=== PATIENT | male | born 1995 | race African-American/Black ===

== ENCOUNTER 2018-12-17 21:05 | Emergency (ER) | payer SELFPAY ==
[2018-12-17 21:57] LABS: Bilirubin Negative (Negative); Blood, Urine Negative (Negative); Clarity CLEAR (Clear); Glucose, Urine (Dipstick) Negative (Negative); Leukocyte Negative (Negative); Nitrite Negative (Negative); Protein, Urine (Dipstick) 30 mg/dL (Neg-Trace); Specific Gravity, Urine 1.027 (1.002-1.036); Urobilinogen 0.2 mg/dL (0.2-1.0); pH, Urine 6.5 (5.0-9.0)
[2018-12-17 21:59] LABS: Bacteria/HPF None Seen HPF (None Seen); Hyaline Casts/LPF 7-10 HYALINE CAST LPF (0-3 Hyaline)
[2018-12-17] MEDS ORDERED: Ondansetron ODT 4 MG TAB ONE (22:10)
[2018-12-17 22:25] LABS: ALT (SGPT) 14 U/L (8-55); AST (SGOT) 23 U/L (5-34); Albumin 3.8 g/dL (3.5-5.0); Alkaline Phosphatase 51 U/L (40-150); Anion Gap 13 mmol/L (10-20); BUN (Urea Nitrogen) 8 mg/dL (8.9-20.6); Bilirubin, Total 0.8 mg/dL (0.2-1.2); Calc. Creatinine Clearance 0 mL/min (70-130); Calcium 8.7 mg/dL (7.8-10.44); Carbon Dioxide 23 mmol/L (22-29); Chloride 102 mmol/L (98-107); Estimated GFR-MDRD Greater than 90; Globulin 3.2 g/dL (2.4-3.5); Glucose 95 mg/dL (70-105); Lipase 34 U/L (8-78); Potassium 3.3 mmol/L (3.5-5.1); Sodium 135 mmol/L (136-145)
[2018-12-17 22:26] LABS: Band 15 % (5-11); Hemoglobin 17.8 g/dL (14.0-18.0); Lymphocytes 16 % (21-51); MDiff Complete? YES; Mean Corpuscular HGB CONC 33.8 g/dL (32.0-36.0); Mean Corpuscular Hemoglobin 31.2 pg (27.0-31.0); Mean Corpuscular Volume 92.3 fL (78.0-98.0); Mean Platelet Volume 7.6 fL (7.4-10.4); Monocytes 18 % (0-10); Neutrophil 51 % (42-75); Platelet Count 228 thou/uL (130-400); RBC Distribution Width 11.7 % (11.5-14.5); Red Blood Cell (RBC) Count 5.69 mill/uL (4.70-6.10); White Blood Cell (WBC) Count 4.9 thou/uL (4.8-10.8)
[2018-12-17] MEDS ORDERED: Potassium Chloride 20 MEQ TAB ONE (23:16)
== END 2018-12-17 23:25 | disposition home or self-care (01) ==
LOC: ERS 21:05
DX: E86.0 Dehydration (principal); E87.6 Hypokalemia; R11.2 Nausea with vomiting, unspecified; R19.7 Diarrhea, unspecified; J45.909 Unspecified asthma, uncomplicated; Z79.51 Long term (current) use of inhaled steroids
CPT/HCPCS: 36415; 80053; 81003; 81015; 83690; 85025; 87804; 99284; Q0162

== ENCOUNTER 2025-01-03 17:42 | Inpatient (IN) | payer BC, SELFPAY ==
[2025-01-03 17:51] LABS: Actual Bicarbonate (HCO3a) 22.3 mEq/L (22-28); Analyzer IN Cardio ER; Base Excess (BEa) -2.4 mEq/L (-2.0 to +3.0); CO2 Tension 38.5 mmHg (35.0-45.0); Calcium, Ionized (arterial) 1.12 mmol/L (1.12-1.30); Carboxyhemoglobin (COHb) 0.3 gm% (0.0-3.0); Hematocrit-ABG 50 % (42.0-52.0); Potassium - ABG Lab 3.41 mmol/L (3.70-5.30)
[2025-01-03 17:53] LABS: ALV-art Gradient 300.875 mmHg (0-20); Puncture Site Right Radial artery
[2025-01-03] MEDS ORDERED: Fentanyl CADD 100 ML IV SCH ×2 (18:00→20:45)
[2025-01-03] MEDS ORDERED: fentaNYL 50 mcg/mL 1 mL Vial ONE (18:02)
[2025-01-03] MEDS ORDERED: Propofol 1,000 MG/100 ML VIAL IV ONE (18:21)
[2025-01-03 18:35] LABS: Amphetamine Not Detected (NotDetected); Barbiturates Screen Not Detected (NotDetected); Benzodiazepine Screen Not Detected (NotDetected); Cocaine Metabolite Screen Not Detected (NotDetected); Methadone Not Detected (NotDetected); Methamphetamine Not Detected (NotDetected); Opiate Screen Not Detected (NotDetected); Oxycodone Screen Not Detected (NotDetected); Phencyclidine (PCP) Not Detected (NotDetected); THC/Cannabinoid Screen Not Detected (NotDetected); Tricyclic Screen Not Detected (NotDetected)
[2025-01-03 18:43] LABS: Bacteria/HPF None Seen HPF (None Seen); Bilirubin Negative (Negative); Blood, Urine Negative (Negative); CAUTI Indications for Culture Alt mental st,lethar; Clarity Clear (Clear); Glucose, Urine (Dipstick) Normal (Negative); Ketone, Urine Negative (Negative); Leukocyte Negative Leu/uL (Negative); Nitrite Negative (Negative); Protein, Urine (Dipstick) Negative (Neg-Trace); RBC/HPF 0-3 HPF (0-3); Specific Gravity, Urine 1.009 (1.002-1.036); Squamous Epithelial None Seen HPF (0-3); Urobilinogen Normal mg/dL (Less than 2); WBC/HPF 0-3 HPF (0-3); pH, Urine 6.5 (5.0-9.0)
[2025-01-03 18:56] LABS: Sperm/HPF Rare HPF (None Seen); Urine Culture Reflex No No
[2025-01-03 19:01] LABS: #Basophils Less than 0.03 10x3/uL (0.0-0.2); %Basophils 0.2 % (0.0-1.0); %Eosinophils 0.7 % (0.0-10.0); %Monocytes 8.8 % (0.0-10.0); %Neutrophils 74.1 % (42.0-75.0); Hematocrit 47.1 % (42.0-52.0); Hemoglobin 16.3 g/dL (14.0-18.0); Mean Corpuscular HGB CONC 34.6 g/dL (32.0-36.0); Mean Corpuscular Hemoglobin 30.6 pg (27.0-31.0); Mean Corpuscular Volume 88.5 fL (78.0-98.0); Mean Platelet Volume 10.6 fL (7.4-10.4); Platelet Count 229 10x3/uL (130-400); RBC Distribution Width 11.9 % (11.5-14.5); Red Blood Cell (RBC) Count 5.32 mill/uL (4.70-6.10)
[2025-01-03 19:19] LABS: Magnesium 1.7 mg/dL (1.6-2.6)
[2025-01-03 19:20] LABS: Acetaminophen Less than 10 mcg/mL (Less than 10); Alcohol Less than 10.0 mg/dL (Less than 10); Salicylate Less than 8.0 mg/dL (Less than 8.0)
[2025-01-03 19:22] LABS: ALT (SGPT) 21 U/L (Less than 45); AST (SGOT) 40 U/L (11-34); Albumin 3.7 g/dL (3.1-4.5); Alkaline Phosphatase 47 U/L (40-110); Anion Gap 12 mmol/L (10-20); BUN (Urea Nitrogen) 6 mg/dL (8.9-20.6); Bilirubin, Total 0.5 mg/dL (0.3-1.2); Calc. Creatinine Clearance 0 mL/min (70-130); Carbon Dioxide 20 mmol/L (22-29); Chloride 109 mmol/L (98-107); Estimated GFR 124; Globulin 3.1 g/dL (2.4-3.5); Glucose 104 mg/dL (70-105); Potassium 3.7 mmol/L (3.5-5.1); Protein, Total 6.8 g/dL (6.0-8.3); Sodium 137 mmol/L (136-145)
[2025-01-03] MEDS ORDERED: Acetaminophen 325 MG (10.15 ML) UDCUP PO PRN (20:28)
[2025-01-03] MEDS ORDERED: Acetaminophen 650 MG Suppository PR PRN (20:28)
[2025-01-03] MEDS ORDERED: Electrolyte Replacement Protocol 1 EACH IVPB PRN (20:28)
[2025-01-03] MEDS ORDERED: Lorazepam 2 MG/ML VIAL SLOW IVP PRN ×2 (20:29→20:45)
[2025-01-03] MEDS ORDERED: Ventilator Sedation Protocol 1 EACH FS SCH (20:30)
[2025-01-03] MEDS ORDERED: Ondansetron ODT 4 MG TAB PO PRN (20:32)
[2025-01-03] MEDS ORDERED: Ondansetron PF 4 MG/2 ML Vial IVP PRN (20:32)
[2025-01-03] MEDS ORDERED: Propofol BOLUS 1,000 MG/100 ML VIAL IV PRN (20:45)
[2025-01-03] MEDS ORDERED: Fentanyl BOLUS 250 ML IVPB PRN (20:45)
[2025-01-03] MEDS ORDERED: Morphine 2 MG/ML VIAL SLOW IVP PRN (20:45)
[2025-01-03] MEDS ORDERED: DISCONTINUE PREVIOUS NARCOTIC PAIN MEDICATIONS AND BENZODIAZEPINES FS SCH (20:45)
[2025-01-03] MEDS: Lactated Ringer's 1,000 ML IV SCH (22:31)
[2025-01-03 22:46] VITALS: BMI 25.0
[2025-01-03] MEDS: Magnesium 2 GM/50 ML(in water) 2 GM in Premix 1 BAG IVPB SCH (23:10)
[2025-01-03] MEDS: Famotidine/PF 20 mg/2ml Vial SLOW IVP SCH (23:13)
[2025-01-04] MEDS: Dexamethasone 10 MG/ML VIAL SLOW IVP SCH (00:41)
[2025-01-04] MEDS: Ipratropium/Albuterol 3 ML NEB NEB PRN (03:04)
[2025-01-04 04:13] LABS: #Basophils Less than 0.03 10x3/uL (0.0-0.2); #Eosinophils Less than 0.03 10x3/uL (0.0-0.7); %Basophils 0.2 % (0.0-1.0); %Lymphocytes 15.8 % (21.0-51.0); %Monocytes 6.8 % (0.0-10.0); Hematocrit 48.2 % (42.0-52.0); Hemoglobin 16.8 g/dL (14.0-18.0); Mean Corpuscular HGB CONC 34.9 g/dL (32.0-36.0); Mean Corpuscular Hemoglobin 30.7 pg (27.0-31.0); Mean Platelet Volume 10.5 fL (7.4-10.4); Platelet Count 249 10x3/uL (130-400); RBC Distribution Width 12.2 % (11.5-14.5); Red Blood Cell (RBC) Count 5.48 mill/uL (4.70-6.10)
[2025-01-04] MEDS: Propofol 1,000 MG/100 ML VIAL IV PRN (06:18)
[2025-01-04 06:33] LABS: ALT (SGPT) 20 U/L (Less than 45); AST (SGOT) 42 U/L (11-34); Albumin 3.6 g/dL (3.1-4.5); Alkaline Phosphatase 49 U/L (40-110); Anion Gap 12 mmol/L (10-20); BUN (Urea Nitrogen) 9 mg/dL (8.9-20.6); Bilirubin, Total 1.1 mg/dL (0.3-1.2); Calc. Creatinine Clearance 117 mL/min (70-130); Calcium 8.5 mg/dL (7.8-10.44); Carbon Dioxide 22 mmol/L (22-29); Chloride 108 mmol/L (98-107); Estimated GFR 89; Globulin 3.1 g/dL (2.4-3.5); Glucose 97 mg/dL (70-105); Protein, Total 6.7 g/dL (6.0-8.3); Sodium 138 mmol/L (136-145)
[2025-01-04] MEDS: Enoxaparin 40 MG (0.4 mL) SYRINGE SC SCH (08:22)
[2025-01-04] MEDS: Lorazepam 2 MG/ML VIAL SLOW IVP PRN (09:39)
[2025-01-04] MEDS ORDERED: Magnevist 469MG/ML 20 ML VIAL ONE (10:41)
[2025-01-04] MEDS: DC Sedation Protocol FS ONE (13:26)
[2025-01-05 14:15] VITALS: BP 119/70; TEMP 98.2
[2025-01-06] MEDS ORDERED: FLU (Fluarix Triv) TS24-25(6MOS UP)/PF 45 MCG/0.5 ML Syringe IM ONE (09:00)
== END 2025-01-05 14:26 | disposition home or self-care (01) | DRG 70 ==
LOC: ERS 17:42 → CCU 20:27 → 2SE 01-04 12:58
PROVIDERS: ADMIT Student in an Organized Health Care Education/Training Program; ATTEND Internal Medicine
PROC: 5A1935Z Respiratory Ventilation, Less than 24 Consecutive Hours (ICD-10-PCS; principal; 2025-01-03)
PROC: 4A033R1 Measurement of Arterial Saturation, Peripheral, Percutaneous Approach (ICD-10-PCS; 2025-01-03)
PROC: XX20X89 Monitoring of Brain Electrical Activity, Computer-aided Detection and Notification, New Technology Group 9 (ICD-10-PCS; 2025-01-04)
DX: G93.9 Disorder of brain, unspecified (principal); G93.41 Metabolic encephalopathy; J96.00 Acute respiratory failure, unspecified whether with hypoxia or hypercapnia; E87.20 Acidosis, unspecified; Z88.6 Allergy status to analgesic agent; Z91.041 Radiographic dye allergy status; Z91.010 Allergy to peanuts; Z88.8 Allergy status to other drugs, medicaments and biological substances; Z91.018 Allergy to other foods
CPT/HCPCS: 36415; 36416; 36600; 51702; 70450; 70553; 71045; 72125; 76376; 80053; 80306; 80307; 81001; 82805; 83605; 83735; 84146; 84443; 85025; 93005; 94002; 94003; 94640; 95705; 96374; 96375; 99292; J1100; J1650; J2060; J2704; J3010; J3475; J3490; J7120; J7620